=== PATIENT | female | born 1965 | race African-American/Black ===

== ENCOUNTER 2016-12-20 09:18 | Emergency (ER) | payer MEDICAID ==
[~2016-12-20] VITALS: Ht 165.1 cm; Wt 69.0 kg
[~2016-12-20 09:18] MED LIST: NO MEDS
[2016-12-20] MEDS ORDERED: KETOROLAC 60MG/2ML VIAL IM ONE (11:15)
[2016-12-20] MEDS ORDERED: DEXAMETHASONE 10 MG/ML VIAL IM ONE (11:15)
[2016-12-20 12:48] VITALS: BP 135/72
== END 2016-12-20 12:49 | disposition home or self-care (01) ==
LOC: ER 09:18
DX: M54.12 Radiculopathy, cervical region (principal); M79.602 Pain in left arm; Z88.5 Allergy status to narcotic agent
CPT/HCPCS: 36415; 81025; 84484; 93005; 96372; 99285; J1100; J1885

== ENCOUNTER 2017-02-24 11:50 | Emergency (ER) | payer SELFPAY ==
[~2017-02-24] VITALS: Ht 165.1 cm; Wt 71.5 kg
[2017-02-24 13:19] VITALS: BP 111/76
== END 2017-02-24 14:37 | disposition home or self-care (01) ==
LOC: ER 12:09
DX: M65.30 Trigger finger, unspecified finger (principal); G89.11 Acute pain due to trauma; M25.512 Pain in left shoulder; G89.29 Other chronic pain; R03.0 Elevated blood-pressure reading, without diagnosis of hypertension; V49.40XA Driver injured in collision with unspecified motor vehicles in traffic accident, initial encounter; Y93.89 Activity, other specified; Y92.410 Unspecified street and highway as the place of occurrence of the external cause
CPT/HCPCS: 81025; 99282; A4565

== ENCOUNTER 2017-10-30 17:30 | Emergency (ER) | payer SELFPAY ==
[~2017-10-30] VITALS: Ht 165.1 cm; Wt 75.0 kg
[2017-10-30] MEDS ORDERED: KETOROLAC 30MG/ML VIAL IM ONE (20:15)
[2017-10-30 21:49] VITALS: BP 139/88
== END 2017-10-30 21:53 | disposition home or self-care (01) ==
LOC: ER 18:42
DX: S10.83XA Contusion of other specified part of neck, initial encounter (principal); S40.012A Contusion of left shoulder, initial encounter; S40.011A Contusion of right shoulder, initial encounter; S30.0XXA Contusion of lower back and pelvis, initial encounter; Z90.49 Acquired absence of other specified parts of digestive tract; Z88.5 Allergy status to narcotic agent; Z98.890 Other specified postprocedural states; V43.52XA Car driver injured in collision with other type car in traffic accident, initial encounter; Y93.89 Activity, other specified; Y92.488 Other paved roadways as the place of occurrence of the external cause
CPT/HCPCS: 96372; 99283; J1885; Z7610

== ENCOUNTER 2019-04-12 12:07 | Emergency (ER) | payer OTHER ==
[~2019-04-12] VITALS: Ht 167.6 cm; Wt 73.0 kg
[2019-04-12] MEDS ORDERED: KETOROLAC 60MG/2ML VIAL IM ONE (12:45)
[2019-04-12] MEDS ORDERED: IBUPROFEN 400MG TABLET PO ONE (12:45)
[2019-04-12] MEDS ORDERED: METOCLOPRAMIDE HCL 10MG/2ML VIAL IM ONE (12:45)
[2019-04-12 12:53] VITALS: BP 191/99
== END 2019-04-12 13:26 | disposition left against medical advice (07) ==
LOC: ER 12:07
DX: G43.909 Migraine, unspecified, not intractable, without status migrainosus (principal); Z88.5 Allergy status to narcotic agent
CPT/HCPCS: 96372; 99283; J1885; J2765

== ENCOUNTER 2024-01-15 18:55 | Emergency (ER) | payer SELFPAY ==
[~2024-01-15] VITALS: Ht 170.2 cm; Wt 91.0 kg
[2024-01-15 19:02] VITALS: O2SAT 99
[2024-01-15 20:24] LABS: BASOPHILS % 0.1 % (0.0-2.0); EOSINOPHILS % 0.6 % (0.0-5.0); HEMATOCRIT. 34.6 % (36.0-48.0); HEMOGLOBIN. 11.3 g/dL (12.0-16.0); LYMPHOCYTES % 22.7 % (20.0-50.0); MEAN CORPUSCULAR HEMOGLOBIN 29.1 pg (28.0-32.0); MEAN CORPUSCULAR HGB CONC 32.5 g/dL (31.0-37.0); MEAN CORPUSCULAR VOLUME 89.5 fL (81.0-99.0); MEAN PLATELET VOLUME 8.5 fl (7.4-10.4); MONOCYTES % 7.1 % (2.0-8.0); NEUTROPHILS % 69.5 % (40.0-76.0); PLATELET 218 x1000/uL (130-400); RED BLOOD CELL COUNT 3.87 mill/uL (4.2-5.4); RED CELL DISTRIBUTION WIDTH 14.2 % (11.6-14.6); WHITE BLOOD COUNT 6.3 x1000/uL (4.5-11.0)
[2024-01-15 20:31] LABS: CALCIUM 9.6 mg/dL (8.7-10.4); CARBON DIOXIDE 28 mEq/L (21-32); CHLORIDE 106 mEq/L (98-107); POTASSIUM 3.5 mEq/L (3.5-5.1); SODIUM 139 mEq/L (136-145)
[2024-01-15 20:36] LABS: CREATININE 0.8 mg/dL (0.6-1.0)
[2024-01-15 20:37] LABS: GLUCOSE 106 mg/dL (70-105); UREA NITROGEN BLOOD 12 mg/dL (9-23)
[2024-01-15] MEDS: METOCLOPRAMIDE HCL 10MG/2ML VIAL IM ONE (20:41)
[2024-01-15] MEDS: DIPHENHYDRAMINE 50MG/ML VIAL IM ONE (20:41)
[2024-01-15] MEDS: KETOROLAC 30MG/ML VIAL IM ONE (20:42)
[2024-01-15] MEDS ORDERED: ASPI-1154 PO (22:05)
[2024-01-15 22:27] VITALS: BP 125/68; PULSE 66; RESP 17; TEMP 36.33624; O2SAT 99
== END 2024-01-15 22:32 | disposition home or self-care (01) ==
LOC: ER 18:55
DX: G43.909 Migraine, unspecified, not intractable, without status migrainosus (principal); E11.9 Type 2 diabetes mellitus without complications; R11.2 Nausea with vomiting, unspecified; I10 Essential (primary) hypertension; Z88.5 Allergy status to narcotic agent
CPT/HCPCS: 99285; 70450; 80048; 85025; 36415; 96372; J1200; J1885; J2765